=== PATIENT | male | born 2000 ===

== ENCOUNTER 2018-02-13 00:49 | Emergency (ER) | payer OTHER ==
[~2018-02-13] VITALS: Ht 185.4 cm; Wt 84.4 kg
[2018-02-13 00:59] VITALS: TEMP 36.8; Ht 185.4 cm; Wt 84.4 kg
[2018-02-13] MEDS ORDERED: CEPH500C PO (01:47)
[2018-02-13 01:59] VITALS: BP 111/75; PULSE 69; O2SAT 96
[2018-02-13] MEDS ORDERED: CEPHALEXIN 500MG HOME PACK 1 EA BTL PO ONE (02:00)
[2018-02-13] MEDS ORDERED: NORCO 5/325MG HOME PACK PO ONE (02:00)
--- NOTE | 2018-02-13 04:44 | EMERGENCY ROOM VISIT NOTE ---
History First contact with patient: 01:05 Chief Complaint: LACERATION/CUT (SUT/DERMABOND) Stated Complaint: CUT ON L FOOT Nursing Triage Summary: Pt presents with left great toe laceration. Pt reports he "hit the stairs with my toe today at 2pm". Pt states he did not realize how bad it was until tonight and was concerned that maybe he needed a tetnus shot due to the recent injury. Pt reports he is unsure if his tetnus is up to date but reports he is a [employer] student and did meet all vaccination requirements for the lapaz. History of Present Illness The patient is a 18 year old male who presents to the Emergency Room with complaints of injury to his left great toe after kicking a staircase roughly 12 hours ago. The patient had some bleeding initially and cleansed the wound. He has had some persistent pain in the toe, and became concerned that he may need a tetanus. The patient has been able to ambulate despite the injury. He rates his current discomfort a 5/10. He has not taken anything [id number] for his pain. Review of Systems More than 10 systems were reviewed and otherwise negative with the exception of history of present illness. Past Medical/Surgical History No chronic medical disease Family History No pertinent family history Social History Smoking Status: Never Smoker Current/Historical Medications Scheduled Cephalexin Monohydrate (Keflex), 500 MG PO TID Physical Exam Vital Signs Date Time Temp Pulse Resp B/P (MAP) Pulse Ox O2 Delivery O2 Flow Rate FiO2 02/13/18 01:59 69 16 111/75 96 02/13/18 00:59 36.8 73 16 115/74 94 Room Air Physical Exam VITALS: Vitals are noted on the nurse's note and reviewed by myself. Vital signs stable. GENERAL: Well-developed, well-nourished, male, who is in no acute distress and resting comfortably. Patient is cooperative with the examination. HEAD: Normocephalic atraumatic. HEART: Regular rate and rhythm without murmurs gallops or rubs. LUNGS: Clear to auscultation bilaterally without wheezes, rales or rhonchi. No retractions or accessory muscle use. MUSCULOSKELETAL: There is erythema and edema appreciated at the very distal aspect of the left great toe. There is a curvilinear and superficial 2.0 cm laceration/abrasion at the very distal tip. This appears to be anatomically in place and well healing. There is no significant MTP joint tenderness or lymphangitic streaking. NEURO: Patient was alert and oriented to person place and time. CN II through XII grossly intact. Medical Decision & Procedures Medications Administered Medications (Trade) Dose Ordered Sig/Rob Route Start Time Stop Time Status Last Admin Dose Admin Cephalexin Monohydrate (Keflex 500MG Home Pack) 1 homepack NOW ONCE PO 02/13/18 02:00 02/13/18 02:01 DC 02/13/18 01:56 1 HOMEPACK Acetaminophen/ Hydrocodone Bitart ([place] 5/325mg Home Pack) 1 homepack UD ONCE PO 02/13/18 02:00 02/13/18 02:01 DC 02/13/18 01:56 1 HOMEPACK ED Course Physical exam and history were performed. Nursing notes, EMR, and Medication List were personally reviewed. Patient appears to have suffered injury to the end of his left great toe. The patient delayed coming to the emergency department for several hours. He does not appear to need suture repair of his laceration. Because of the delay in treatment I will start the patient on a course of Keflex. A plain film x-ray was performed of the toe and does not appear to show acute fracture or dislocation per my interpretation. Radiology read is pending and we will contact the patient if there is a discrepancy. The patient will be given a home pack of Vicodin. He is otherwise to follow with his primary care physician for further care and management. The chart was completed utilizing [employer] Voice Recognition Software. Grammatical errors, random word insertions, pronoun errors, and incomplete sentences are an occasional consequence of this system due to software limitations, ambient noise, and hardware issues. Any formal questions or concerns about the content, text, or information contained within the body of this dictation should be directly addressed to the provider for clarification. . Medical Decision Differential diagnosis includes, but is not limited to: Sprain, strain, fracture , dislocation, subluxation, contusion, and others Impression Primary Impression: Injury of left great toe Departure Information Dispostion Home / Self-Care Condition GOOD Prescriptions Cephalexin Monohydrate (Keflex) 500 Mg Cap 500 MG PO TID for 7 Days, #21 CAP Prov: Jono Costello PA-C 5/4/18 Forms HOME CARE DOCUMENTATION FORM, IMPORTANT VISIT INFORMATION Patient Instructions [facility] Additional Instructions You were seen and evaluated today on an emergency basis only. This is not a substitute for, or an effort to provide, complete comprehensive medical care. It is not possible to recognize and treat all injuries or illnesses in a single emergency department visit. For this reason it is recommended that you followup with your primary care physician or S next week if symptoms persist. For baseline pain relief you may alternate ibuprofen and acetaminophen every 4 hours for pain control. Take 600 mg ibuprofen (Advil) and then 4 hours later take 1000 mg acetaminophen (Tylenol). Do not take more than 3000 mg acetaminophen in a single day. [place] (hydrocodone/acetaminophen) 5/325 mg (homepack) ONE tablet every 6 hours as needed for worsening breakthrough pain. Do not drink or drive on [place]. This medication will likely make you tired. Do not take [place] and Tylenol at the same time as both contain acetaminophen. [place] may cause constipation. You may wish to take an [id number] stool softener like Colace if this occurs. Cephalexin(Keflex) 500mg: Take one pill 3 times daily for 7 days to prevent skin infection. All antibiotics can cause diarrhea. If this occurs and you feel worse or it does not resolve in 1-2 days follow up with your doctor or return to the Emergency Department as this could be signs of serious underlying problems. Any medication can cause an allergic reaction, stop the pills immediately and return to the ER for rash, hives, breathing difficulties, or swelling. You are welcome to return to the emergency department anytime with new, worsening, or concerning symptoms.
--- NOTE | 2018-02-13 06:50 | DIAGNOSTIC IMAGING REPORT ---
L TOE(S) MIN 2 VIEWS CLINICAL HISTORY: left great toe injury trauma COMPARISON: None. DISCUSSION: The bones and joint spaces appear intact. There is no evidence of fracture, dislocation or bony disease. Mild soft tissue edema IMPRESSION: Negative study. Mild soft tissue edema The above report was generated using voice recognition software. It may contain grammatical, syntax or spelling errors. Electronically signed by: Tomasz Wayne M.D. 02/13/2018 6:49 AM Dictated Date/Time: 02/13/2018 6:48 AM
== END 2018-02-13 01:55 | disposition home or self-care (01) ==
LOC: C.EDB 00:51
DX: S91.132A Puncture wound without foreign body of left great toe without damage to nail, initial encounter (principal); W22.8XXA Striking against or struck by other objects, initial encounter